=== PATIENT | male | born 1940 | race Caucasian/White ===

== ENCOUNTER 2020-05-20 18:03 | Inpatient (IN) ==
[2020-05-20] MEDS ORDERED: *HR* Promethazine 25 MG/ML VIAL IM PRN (20:02)
[2020-05-20] MEDS ORDERED: Ondansetron 4 MG/2 ML VIAL IVP PRN (20:02)
[2020-05-20] MEDS ORDERED: Naloxone 0.4 MG/ML INJ IVP PRN (20:02)
[2020-05-20] MEDS ORDERED: D5% in Water 1,000 ML IVC PRN (22:34)
[2020-05-20] MEDS ORDERED: Dextrose Gel 15 GM/37.5 ML TUBE PO PRN ×2 (22:34)
[2020-05-20] MEDS ORDERED: *HR* Dextrose 50 % in Water (Vial) 50 ML VIAL IVP PRN (22:34)
[2020-05-20] MEDS: Ringers Solution, Lactated 1,000 ML IVC SCH (23:10)
[2020-05-20] MEDS: Insulin LISPRO 300 UNITS/3 ML VIAL SUBQ SCH (23:23)
[2020-05-20 23:30] LABS: Chloride 91 mEq/L (98-107); Potassium 4.4 mEq/L (3.5-5.1); Sodium 124 mEq/L (136-145)
[2020-05-20 23:54] LABS: BUN/Creatinine Ratio 13 (6-26); Blood Urea Nitrogen 11 mg/dL (8-23); Carbon Dioxide 24 mEq/L (23-29); Glucose 237 mg/dL (70-105); Osmolality,Calculated 265 (280-300); eGFR For African Americans > 60 (> 60); eGFR For Non-African Americans > 60 (> 60)
[2020-05-21 02:59] LABS: Basophils % 0.2 %; Eosinophils # 0.1 K/mcL (0.0-0.6); Eosinophils % 0.3 %; Hematocrit 36.8 % (37.5-50.1); Hemoglobin 12.9 g/dL (12.9-16.9); Immature Granulocytes % 0.6 % (0-4); Lymphocytes # 1.3 K/mcL (0.6-4.6); Lymphocytes % 6.9 %; Mean Corpuscular HGB Conc 35.1 g/dL (31.6-35.5); Mean Corpuscular Hemoglobin 32.1 pg (28.0-33.3); Mean Corpuscular Volume 91.5 fL (83.0-100.0); Mean Platelet Volume 9.2 fL (9.4-12.4); Monocytes # 2.2 K/mcL (0.0-1.3); Monocytes % 11.8 %; Neutrophils # 14.7 K/mcL (1.6-8.9); Platelet Count 241 K/mcL (140-400); Red Blood Count 4.02 M/mcL (4.19-5.50); Red Cell Distribution Width 11.9 % (11.5-14.5); Segmented Neutrophils % 80.2 %; White Blood Count 18.4 K/mcL (4.3-11.1)
[2020-05-21 03:14] LABS: INR 1.2; Prothrombin Time 14.3 Seconds (9.4-12.1)
[2020-05-21 03:21] LABS: Alanine Aminotransferase 24 Units/L (7-52); Albumin 3.5 g/dL (3.5-5.7); Albumin/Globulin Ratio 1.3 (1.1-2.2); Alkaline Phosphatase 43 Units/L (34-104); Aspartate Amino Transferase 15 Units/L (13-39); BUN/Creatinine Ratio 16 (6-26); Bilirubin,Total 0.7 mg/dL (0.3-1.0); Blood Urea Nitrogen 13 mg/dL (8-23); Calcium 8.9 mg/dL (8.6-10.3); Carbon Dioxide 26 mEq/L (23-29); Chloride 93 mEq/L (98-107); Chol/HDL Ratio 2.5 (0-4.9); Cholesterol 150 mg/dL (< 200); Globulin 2.6 g/dL (2.4-3.5); Glucose 128 mg/dL (70-105); HDL Cholesterol 59 mg/dL (40-59); LDL Cholesterol,Calculated 82 mg/dL (< 100); Osmolality,Calculated 264 (280-300); Sodium 126 mEq/L (136-145); Total Protein 6.1 g/dL (6.4-8.9); Triglycerides 46 mg/dL (< 150); Troponin I < 0.03 ng/mL (< 0.04); eGFR For African Americans > 60 (> 60); eGFR For Non-African Americans > 60 (> 60)
[2020-05-21] MEDS: *HR* Heparin 5,000 UNIT/ML VIAL SQ SCH ×3 (04:40→20:08)
[2020-05-21] MEDS: Insulin LISPRO 300 UNITS/3 ML VIAL SUBQ SCH ×4 (05:51→23:05)
[2020-05-21] MEDS ORDERED: 0.9 % Sodium Chloride 1,000 ML IVC SCH (09:45)
[2020-05-21] MEDS: 0.9 % Sodium Chloride 1,000 ML IVC SCH (10:14)
[2020-05-21] MEDS: Piperacillin/Tazobactam 3.375 GM in 0.9 % Sodium Chloride Mini Bag 100 ML IVPB SCH ×3 (10:15→23:02)
[2020-05-21] MEDS: Ipratropium/Albuterol Neb 3 ML IH SCH ×5 (10:39→23:09)
[2020-05-21] MEDS ORDERED: Morphine Sulfate 2 MG/ML SYRINGE IVP ONE (12:57)
[2020-05-21] MEDS: Budesonide/Formoterol 160/4.5 1 PUFF INH IH SCH ×2 (16:05→20:43)
[2020-05-21 16:07] LABS: BUN/Creatinine Ratio 18 (6-26); Blood Urea Nitrogen 15 mg/dL (8-23); Carbon Dioxide 26 mEq/L (23-29); Chloride 94 mEq/L (98-107); Glucose 165 mg/dL (70-105); Osmolality,Calculated 269 (280-300); Potassium 4.4 mEq/L (3.5-5.1); Sodium 127 mEq/L (136-145); eGFR For African Americans > 60 (> 60); eGFR For Non-African Americans > 60 (> 60)
[2020-05-21] MEDS ORDERED: *HR* FentaNYL (PF) 100 MCG/2 ML VIAL ONE (16:50)
[2020-05-21] MEDS ORDERED: *HR* Propofol 200 MG/20 ML VIAL IVP ONE (16:50)
[2020-05-21] MEDS ORDERED: *HR* Rocuronium Bromide 50 MG/5 ML VIAL ONE (16:52)
[2020-05-21] MEDS ORDERED: Lidocaine -MPF 2% 2 ML VIAL ONE (16:52)
[2020-05-21] MEDS ORDERED: Ipratropium/Albuterol Neb 3 ML ONE (17:00)
[2020-05-21] MEDS ORDERED: Ondansetron 4 MG/2 ML VIAL ONE (17:44)
[2020-05-21] MEDS ORDERED: *HR* Metoprolol 5 MG/5 ML VIAL IVP ONE (17:44)
[2020-05-21] MEDS ORDERED: Sugammadex Sodium 200 MG/2 ML VIAL IV ONE (18:03)
[2020-05-21] MEDS: Ringers Solution, Lactated 1,000 ML IVC SCH (19:09)
[2020-05-21] MEDS ORDERED: carvediloL 6.25 MG TABLET PO SCH (21:00)
[2020-05-22] MEDS: Ipratropium/Albuterol Neb 3 ML IH SCH ×6 (04:42→23:07)
[2020-05-22] MEDS: *HR* Heparin 5,000 UNIT/ML VIAL SQ SCH ×3 (05:31→20:15)
[2020-05-22] MEDS: 0.9 % Sodium Chloride 1,000 ML IVC SCH (05:31)
[2020-05-22] MEDS: Insulin LISPRO 300 UNITS/3 ML VIAL SUBQ SCH ×4 (05:31→16:09)
[2020-05-22 06:21] LABS: Basophils % 0.1 %; Hematocrit 33.4 % (37.5-50.1); Hemoglobin 11.4 g/dL (12.9-16.9); Immature Granulocytes % 0.4 % (0-4); Lymphocytes # 0.7 K/mcL (0.6-4.6); Mean Corpuscular HGB Conc 34.1 g/dL (31.6-35.5); Mean Corpuscular Hemoglobin 31.2 pg (28.0-33.3); Mean Corpuscular Volume 91.5 fL (83.0-100.0); Mean Platelet Volume 9.6 fL (9.4-12.4); Monocytes # 0.6 K/mcL (0.0-1.3); Monocytes % 4.2 %; Neutrophils # 12.4 K/mcL (1.6-8.9); Platelet Count 200 K/mcL (140-400); Red Blood Count 3.65 M/mcL (4.19-5.50); Red Cell Distribution Width 12.1 % (11.5-14.5); Segmented Neutrophils % 90.3 %; White Blood Count 13.7 K/mcL (4.3-11.1)
[2020-05-22 06:51] LABS: Alanine Aminotransferase 23 Units/L (7-52); Albumin 3.2 g/dL (3.5-5.7); Albumin/Globulin Ratio 1.2 (1.1-2.2); Alkaline Phosphatase 42 Units/L (34-104); Aspartate Amino Transferase 19 Units/L (13-39); BUN/Creatinine Ratio 23 (6-26); Bilirubin,Total 0.7 mg/dL (0.3-1.0); Blood Urea Nitrogen 22 mg/dL (8-23); Calcium 8.7 mg/dL (8.6-10.3); Carbon Dioxide 24 mEq/L (23-29); Chloride 96 mEq/L (98-107); Globulin 2.7 g/dL (2.4-3.5); Glucose 266 mg/dL (70-105); Magnesium 2.1 mg/dL (1.6-2.6); Osmolality,Calculated 275 (280-300); Phosphorous 1.7 mg/dL (2.7-4.5); Potassium 4.3 mEq/L (3.5-5.1); Sodium 126 mEq/L (136-145); Total Protein 5.9 g/dL (6.4-8.9); eGFR For African Americans > 60 (> 60); eGFR For Non-African Americans > 60 (> 60)
[2020-05-22] MEDS ORDERED: Ondansetron 4 MG/2 ML VIAL IVP PRN (07:00)
[2020-05-22] MEDS ORDERED: 0.9 % Sodium Chloride 1,000 ML IVC SCH (07:00)
[2020-05-22] MEDS ORDERED: Dextrose Gel 15 GM/37.5 ML TUBE PO PRN ×2 (07:00)
[2020-05-22] MEDS ORDERED: Naloxone 0.4 MG/ML INJ IVP PRN (07:00)
[2020-05-22] MEDS ORDERED: *HR* Promethazine 25 MG/ML VIAL IM PRN (07:00)
[2020-05-22] MEDS ORDERED: D5% in Water 1,000 ML IVC PRN (07:00)
[2020-05-22] MEDS ORDERED: *HR* Dextrose 50 % in Water (Vial) 50 ML VIAL IVP PRN (07:00)
[2020-05-22] MEDS: Budesonide/Formoterol 160/4.5 1 PUFF INH IH SCH ×2 (07:48→19:50)
[2020-05-22] MEDS ORDERED: Aspirin Enteric Coated 81 MG Tablet PO SCH (09:00)
[2020-05-22] MEDS: carvediloL 6.25 MG TABLET PO SCH ×2 (09:23→15:59)
[2020-05-22] MEDS: Aspirin Enteric Coated 81 MG Tablet PO SCH (09:23)
[2020-05-22] MEDS: Piperacillin/Tazobactam 3.375 GM in 0.9 % Sodium Chloride Mini Bag 100 ML IVPB SCH ×2 (09:24→15:59)
[2020-05-22] MEDS ORDERED: Furosemide 80 MG in 0.9 % Sodium Chloride 50 ML IVPB ONE (09:33)
[2020-05-22 10:53] LABS: Bilirubin,Urine Negative (Negative); Blood,Urine Negative (Negative); Clarity,Urine Clear (Clear); Color,Urine Yellow (Yellow); Glucose,Urine (UA) 30 mg/dL (Normal); Ketones,Urine Trace mg/dL (Negative); Leukocyte Esterase,Urine Negative (Negative); Mucus,Urine Few per lpf (None-Few); Nitrite,Urine Negative (Negative); Protein,Urine 30 mg/dL (Neg-Trace); RBC,Urine 0-3 per hpf (0-3); Specific Gravity,Urine > 1.030 (1.010-1.025); Squamous Epithelial Cell,Urine Few per hpf (None-Few); Urobilinogen,Urine Normal (Normal); WBC,Urine 0-3 per hpf (0-3)
[2020-05-22] MEDS ORDERED: Insulin LISPRO 300 UNITS/3 ML VIAL SUBQ SCH (12:00)
[2020-05-22] MEDS: Ondansetron 4 MG/2 ML VIAL IVP PRN ×2 (12:27→20:20)
[2020-05-22] MEDS: *HR* Metformin 500 MG TABLET PO SCH (15:59)
[2020-05-22] MEDS: GlipiZIDE 5 MG TABLET PO SCH (17:52)
[2020-05-22] MEDS: Furosemide 20 MG TABLET PO SCH (17:53)
[2020-05-22 18:25] LABS: Sodium, Urine 29.1 mEq/L
[2020-05-23] MEDS: Piperacillin/Tazobactam 3.375 GM in 0.9 % Sodium Chloride Mini Bag 100 ML IVPB SCH ×4 (00:06→22:55)
[2020-05-23] MEDS: Ipratropium/Albuterol Neb 3 ML IH SCH ×6 (04:16→23:15)
[2020-05-23 04:28] LABS: Basophils % 0.1 %; Eosinophils % 0.1 %; Hematocrit 37.4 % (37.5-50.1); Hemoglobin 12.8 g/dL (12.9-16.9); Immature Granulocytes % 0.5 % (0-4); Lymphocytes # 1.4 K/mcL (0.6-4.6); Lymphocytes % 9.5 %; Mean Corpuscular HGB Conc 34.2 g/dL (31.6-35.5); Mean Corpuscular Hemoglobin 31.7 pg (28.0-33.3); Mean Corpuscular Volume 92.6 fL (83.0-100.0); Mean Platelet Volume 9.6 fL (9.4-12.4); Monocytes # 1.2 K/mcL (0.0-1.3); Monocytes % 8.1 %; Neutrophils # 11.6 K/mcL (1.6-8.9); Platelet Count 280 K/mcL (140-400); Red Blood Count 4.04 M/mcL (4.19-5.50); Red Cell Distribution Width 12.1 % (11.5-14.5); Segmented Neutrophils % 81.7 %; White Blood Count 14.3 K/mcL (4.3-11.1)
[2020-05-23 04:50] LABS: BUN/Creatinine Ratio 25 (6-26); Blood Urea Nitrogen 22 mg/dL (8-23); Calcium 9.1 mg/dL (8.6-10.3); Carbon Dioxide 27 mEq/L (23-29); Chloride 94 mEq/L (98-107); Glucose 160 mg/dL (70-105); Magnesium 2.5 mg/dL (1.6-2.6); Osmolality,Calculated 275 (280-300); Phosphorous 2.8 mg/dL (2.7-4.5); Sodium 129 mEq/L (136-145); eGFR For African Americans > 60 (> 60); eGFR For Non-African Americans > 60 (> 60)
[2020-05-23] MEDS: *HR* Heparin 5,000 UNIT/ML VIAL SQ SCH ×3 (05:04→20:31)
[2020-05-23] MEDS: Furosemide 20 MG TABLET PO SCH ×2 (05:04→17:06)
[2020-05-23] MEDS: Insulin LISPRO 300 UNITS/3 ML VIAL SUBQ SCH ×3 (07:25→17:05)
[2020-05-23] MEDS: Aspirin Enteric Coated 81 MG Tablet PO SCH (07:28)
[2020-05-23] MEDS: *HR* Metformin 500 MG TABLET PO SCH ×2 (07:29→17:06)
[2020-05-23] MEDS: GlipiZIDE 5 MG TABLET PO SCH ×2 (07:29→17:06)
[2020-05-23] MEDS: carvediloL 6.25 MG TABLET PO SCH ×2 (07:29→17:06)
[2020-05-23] MEDS: Budesonide/Formoterol 160/4.5 1 PUFF INH IH SCH ×2 (07:42→19:55)
[2020-05-23] MEDS: Ondansetron 4 MG/2 ML VIAL IVP PRN (09:05)
[2020-05-23] MEDS ORDERED: Bisacodyl 10 MG RECTAL SUPPOSITORY RC PRN (13:52)
[2020-05-23] MEDS ORDERED: Furosemide 80 MG in 0.9 % Sodium Chloride 50 ML IVPB ONE (13:52)
[2020-05-23] MEDS ORDERED: Scopolamine Patch 1.5 MG PATCH.TD72 TD ONE (13:52)
[2020-05-24] MEDS: Ipratropium/Albuterol Neb 3 ML IH SCH ×3 (03:59→11:17)
[2020-05-24] MEDS: *HR* Heparin 5,000 UNIT/ML VIAL SQ SCH (04:50)
[2020-05-24] MEDS: Furosemide 20 MG TABLET PO SCH (04:50)
[2020-05-24] MEDS: Insulin LISPRO 300 UNITS/3 ML VIAL SUBQ SCH ×2 (07:19→11:42)
[2020-05-24] MEDS: Aspirin Enteric Coated 81 MG Tablet PO SCH (07:47)
[2020-05-24] MEDS: *HR* Metformin 500 MG TABLET PO SCH (07:47)
[2020-05-24] MEDS: carvediloL 6.25 MG TABLET PO SCH (07:47)
[2020-05-24] MEDS: Piperacillin/Tazobactam 3.375 GM in 0.9 % Sodium Chloride Mini Bag 100 ML IVPB SCH (07:47)
[2020-05-24] MEDS: GlipiZIDE 5 MG TABLET PO SCH (07:47)
[2020-05-24] MEDS: Budesonide/Formoterol 160/4.5 1 PUFF INH IH SCH (08:33)
[2020-05-24 09:17] LABS: BUN/Creatinine Ratio 36 (6-26); Blood Urea Nitrogen 31 mg/dL (8-23); Calcium 9.2 mg/dL (8.6-10.3); Carbon Dioxide 28 mEq/L (23-29); Chloride 94 mEq/L (98-107); Glucose 184 mg/dL (70-105); Osmolality,Calculated 285 (280-300); Potassium 3.9 mEq/L (3.5-5.1); Sodium 132 mEq/L (136-145); eGFR For African Americans > 60 (> 60); eGFR For Non-African Americans > 60 (> 60)
[2020-05-24 11:18] VITALS: BP 175/66
== END 2020-05-24 13:03 | disposition home or self-care (01) | DRG 417 ==
LOC: 3BNU → SUATTDRO 19:29
PROVIDERS: ADMIT Internal Medicine; ATTEND Internal Medicine